=== PATIENT | male | born 1955 | race Caucasian/White ===

== ENCOUNTER 2019-09-16 07:02 | Day surgery (SDC) | payer BC, OTHER ==
[2019-09-08 16:24] VITALS: BMI 23.5
--- NOTE | 2019-09-15 14:41 | HP ---
[facility]ellite [facility] - Chief Complaint Chief Complaint: left hand pain - Past Medical History Allergies/Adverse Reactions: Allergies Allergy/AdvReac Type Severity Reaction Status Date / Time No Known Allergies Allergy Verified 09/16/19 08:22 - Current Medications Current Medications: Home Medications Medication Instructions Recorded Aspirin [ASA -] 81 mg PO DAILY 09/16/19 Atorvastatin Ca [Lipitor] 40 mg PO HS 09/16/19 Lisinopril 10 mg PO DAILY 09/16/19 Melatonin 1 mg PO HS 09/16/19 Multivitamins [Tab-A-Vit -] 1 tab PO DAILY 09/16/19 [place]-3S/Dha/Epa/Fish Oil [Fish 1 each PO HS 09/16/19 Oil 1,200 mg Softgel] Omeprazole 40 mg PO DAILY 09/16/19 Tadalafil [Cialis] 5 mg PO DAILY 09/16/19 metFORMIN HCL [Metformin ER 500 mg PO DAILY 09/16/19 Osmotic] Satellite Physical Exam - Physical Examination General Appearance: Well Nourished, Well Developed, Alert & Oriented x3 ENT: Clear Lung: Normal air movement Extremities: Other (left ring finger- + locking, + ttp a1 raeann, nvi) Neurological: Intact, Alert, Oriented Satellite Impression/Plan - Impression/Plan Impression: left ring trigger finger Operative Procedure: left ring trigger release Date to be Performed: 09/16/19
[2019-09-16 08:20] VITALS: TEMP 97.7
[2019-09-16] MEDS ORDERED: LIDOCAINE HCL 2% (20ML MULTI-DOSE VIAL) ONE (08:53)
[2019-09-16] MEDS ORDERED: BUPIVACAINE HCL/PF 0.5% (5 MG/ML) 30 ML VIAL IJ ONE ×4 (08:53→09:55)
[2019-09-16] MEDS ORDERED: LIDOCAINE HCL 1%, 10 MG/ML (20ML VIAL) ONE (08:53)
[2019-09-16] MEDS ORDERED: MIDAZOLAM HCL 2 MG/2 ML SINGLE DOSE VIAL ONE (09:28)
[2019-09-16] MEDS ORDERED: PROPOFOL 20 ML ONE (09:28)
[2019-09-16] MEDS ORDERED: ceFAZolin SODIUM 1 GM VIAL ONE (09:29)
[2019-09-16] MEDS ORDERED: SODIUM CHLORIDE 0.9% P/F 10 ML VIAL IJ ONE (09:29)
[2019-09-16] MEDS ORDERED: KETOROLAC TROMETHAMINE 30 MG/1 ML VIAL ONE (09:29)
[2019-09-16] MEDS ORDERED: DEXAMETHASONE SOD PHOSPHATE 4 MG/1 ML VIAL ONE (09:29)
[2019-09-16] MEDS ORDERED: ceFAZolin SODIUM 1 GM VIAL IVPB ONE ×2 (09:31→09:49)
[2019-09-16] MEDS ORDERED: LIDOCAINE HCL 1%, 10 MG/ML (20ML VIAL) NR ONE ×3 (09:31→09:55)
[2019-09-16] MEDS ORDERED: LIDOCAINE HCL/PF 2% SDV 5ML VIAL ONE (09:42)
--- NOTE | 2019-09-16 10:25 | OP ---
Operative Note - Note: Operative Date: 09/16/19 Pre-Operative Diagnosis: left ring finger trigger finger Operation: left ring finger trigger finger release, tendon sheath excision Post-Operative Diagnosis: Same as Pre-op Surgeon: Dennis Boggs Union Organiser: Martin Wilson Anesthesiologist/SATELLITE INSTALLER: Reji Olmos Anesthesia: Local, MAC Specimens Removed: tendon sheath Estimated Blood Loss (mls): 0 Drains, Volume Out (mls): 0 Blood Volume Replaced (mls): 0 Fluid Volume Replaced (mls): 500 Operative Report Dictated: Yes
--- NOTE | 2019-09-16 11:41 | SPEC ---
DATE OF OPERATION: 09/16/2019 PREOPERATIVE DIAGNOSIS: Left ring finger trigger finger. POSTOPERATIVE DIAGNOSIS: Left ring finger trigger finger. PROCEDURE: Left ring finger trigger finger release and tendon sheath excision. SURGEON: Dennis Boggs MD MORTGAGE CLERK: Christopher Calabrese MD ANESTHESIA: LULA Duarte, MAC anesthesia, local injection of 10 mL 0.5% Marcaine, 1% lidocaine mix. DRAINS: None. COMPLICATIONS: None. SPECIMENS: Tendon sheath left ring finger. BLOOD LOSS: None. BLOOD GIVEN: None. FLUID REPLACEMENT: 500 mL. INDICATIONS: This patient is a 63-year-old male with a preoperative diagnosis of a severe, recurrent left ring finger trigger finger. After understanding the potential risks, complications, alternatives and benefits to surgery versus nonsurgical treatment, the patient elected to undergo this procedure. PROCEDURE: The patient was brought to the operating room, IV was placed, IV sedation was given. One gram of intravenous Ancef given. A tourniquet was applied to the left upper arm and the left upper extremity was prepped and draped in sterile fashion. The entire case was done under 3.8 loupe magnification. A marking pen was utilized to lucy out a longitudinal incision in an already existing skin crease at the base of the left ring finger. Then 10 mL of 0.5% Marcaine mixed with 1% lidocaine was injected in and around the incision. The left upper extremity was elevated, exsanguinated with an Esmarch bandage and the tourniquet inflated to 250 mmHg. A No. 15 scalpel blade was utilized to cut down through the skin. Subcutaneous hemostasis was achieved with the bipolar cautery. Additional dissection was done with Littler scissors until I was able to directly visualize the A1 raeann sheath in its entirety. Self-retaining retractors were placed into the wound. A Gorham elevator was used to free up the tissue on the radial side, the ulnar side distally and proximally under better visualization of A1 raeann sheath. Next, using a fresh No. 15 scalpel blade, I excised the central one-third of the A1 raeann sheath and passed it off the field as specimen, tendon sheath, ring finger. I then completed the release, both distally and proximally, and brought the FDS and FDP tendons out through the wound with a Ragnell retractor. There were no abnormal points of compression. I was able to move the ring finger without the tendons bunching up at all. The area was then copiously irrigated and washed out. I then checked one more time to make sure there were no abnormal points of compression. None were seen and therefore closure was begun. One stitch using 4-0 Vicryl was used in the deep dermal layer. Skin was reapproximated with 4-0 nylon sutures in a horizontal mattress fashion. The area was then washed and dried, covered with Xeroform gauze, sterile 4 x 4s, fluffs between the fingers, Webril and Coban. The tourniquet was taken down after a total tourniquet time of 15 minutes. There were no complications during the case. The patient tolerated the procedure well and was brought to the Ambulatory Recovery Room in stable condition. CHRISTOPHER CALABRESE M.D. [id number]
[2019-09-16] MEDS ORDERED: oxyCODONE HCL 5 MG TABLET PO PRN ×2 (12:06)
[2019-09-16] MEDS ORDERED: ONDANSETRON 4 MG/2 ML VIAL IVPUSH PRN (12:06)
[2019-09-16] MEDS ORDERED: LACTATED RINGERS SOLUTION 1,000 ML IV SCH (12:15)
[2019-09-16 13:17] VITALS: BP 131/75; PULSE 69
--- NOTE | 2019-09-17 15:03 | PATH ---
Surgical Pathology Report Patient Name: SOLA SIMPSON Med. Rec. #: [id number] /Age/Gender: 1955 (Age: 63) / M Account: [id number] Location: [facility] SURGICAL Taken: 09/16/2019 Received: 09/16/2019 Reported: 09/17/2019 Physicians: Martin Wilson M.D. Specimen(s) Received TENDON SHEATH Clinical History Left trigger finger Final Diagnosis TENDON SHEATH, RING FINGER, LEFT, TRIGGER FINGER RELEASE: BENIGN DENSE FIBROCONNECTIVE TISSUE WITH DEGENERATIVE CHANGES AND FIBROADIPOSE TISSUE. Electronically Signed Brooklyn Lopez M.D. Gross Description Received in formalin labeled "tendon sheath," are 2 chamberlain fragments of fibrous tissue averaging 0.8 cm in greatest dimension. The specimens are submitted in toto in one cassette. /09/16/201909/16/2019
== END 2019-09-16 13:20 | disposition home or self-care (01) ==
LOC: JASU-SURG 07:02
PROVIDERS: ATTEND Orthopaedic Surgery
PROC: 0LN80ZZ Release Left Hand Tendon, Open Approach (ICD-10-PCS; principal; 2019-09-16 09:00)
DX: M65.342 Trigger finger, left ring finger (principal)
CPT/HCPCS: 82962